=== PATIENT | female | born 1950 | race Caucasian/White ===

== ENCOUNTER → 2016-07-27 | Outpatient (CLI) | payer OTHER ==
[~2016-07-27] MED LIST: COLE1TAB5 PO; CYAN10005 PO; FENO145T26 PO; LISI-725 PO; OMEGCAP2 PO; PRIM50TA29 PO; THM100 PO; ZNTT/150 PO
--- NOTE | 2016-07-27 14:25 | MAMMOGRAPHY REPORT ---
BILATERAL DIGITAL SCREENING MAMMOGRAM WITH CAD: 07/27/2016 CLINICAL HISTORY: Routine screening. Patient has no complaints. TECHNIQUE: Current study was also evaluated with a Computer Aided Detection (CAD) system. Bilatera l CC and MLO views were obtained. COMPARISON: Comparison is made to exams dated: 07/15/2014 mammogram - [facility], mammogram, and 07/29/2010 mammogram - [facility]. BREAST COMPOSITION: The tissue of both breasts is heterogeneously dense, which may obscure small ma sses. FINDINGS: No suspicious masses, calcifications, or areas of architectural distortion are noted in e ither breast. There has been no significant interval change compared to prior exams. Scattered bilat eral benign-appearing calcifications are not significantly changed. Small benign-appearing masses i n the right upper outer quadrant are stable and likely represent benign intramammary lymph nodes. IMPRESSION: ACR BI-RADS CATEGORY 2: BENIGN There is no mammographic evidence of malignancy. A 1 year screening mammogram is recommended. The p atient will receive written notification of the results. Approximately 10% of breast cancers are not detected with mammography. A negative mammographic repor t should not delay biopsy if a clinically suggestive mass is present. Romelia Urias M.D. ah/:07/27/2016 13:28:41 Order Puller: Dustin LEONARDO(Marquis)([place]), [facility] letter sent: Normal 1/2 BI-RADS Code: ACR BI-RADS Category 2: Benign
== END | disposition home or self-care (01) ==
LOC: C.MAMM 11:04
PROVIDERS: ATTEND Family Medicine
DX: Z12.31 Encounter for screening mammogram for malignant neoplasm of breast (principal)

== ENCOUNTER → 2016-09-13 | Outpatient (CLI) | payer OTHER ==
[2016-09-13 09:55] LABS: BLOOD UREA NITROGEN 8 mg/dl (7-18); BUN/CREATININE RATIO 12.4 (10-20); CALCIUM 9.6 mg/dl (8.5-10.1); CARBON DIOXIDE 27 mmol/L (21-32); CHLORIDE 96 mmol/L (98-107); CREATININE 0.66 mg/dl (0.60-1.20); GLUCOSE 92 mg/dl (70-99); POTASSIUM 4.1 mmol/L (3.5-5.1); SODIUM 132 mmol/L (136-145)
== END | disposition home or self-care (01) ==
LOC: C.LAB 08:27
PROVIDERS: ATTEND Family Medicine
DX: E51.9 Thiamine deficiency, unspecified (principal); E87.1 Hypo-osmolality and hyponatremia

== ENCOUNTER → 2016-12-15 | Outpatient (CLI) | payer OTHER ==
[2016-12-15 11:14] LABS: ALT/SGPT 26 U/L (12-78); AST/SGOT 24 U/L (15-37); BLOOD UREA NITROGEN 6 mg/dl (7-18); BUN/CREATININE RATIO 9.8 (10-20); CALCIUM 9.9 mg/dl (8.5-10.1); CARBON DIOXIDE 27 mmol/L (21-32); CHLORIDE 100 mmol/L (98-107); CREATININE 0.65 mg/dl (0.60-1.20); GLUCOSE 88 mg/dl (70-99); SODIUM 135 mmol/L (136-145)
[2016-12-15 11:21] LABS: ALB/GLOB RATIO 1.1 (0.9-2); ALKALINE PHOSPHATASE 63 U/L (45-117); PREALBUMIN 20.4 mg/dl (20-40)
--- NOTE | 2016-12-22 07:42 | CODING QUERY MEDICAL NECESSITY ---
CQSUPPORTING DIAGNOSIS NEEDED A supporting diagnosis is required for the test/procedure performed on this patient in order for us to be reimbursed by the patient's insurance. Please provide a supporting diagnosis for the following test/procedure listed below next to the test name along with your signature. *If there is no additional diagnosis for this patient that would support the following test/procedure please document that below next to the test/procedure. Test(s)/Procedure(s) that require a supporting diagnosis: DOS 12/15/16 VITAMIN B12 YOU RETURNED QUERY WITH A SIGNATURE BUT NO DIAGNOSIS FOR THE VITAMIN B12 TEST PLEASE ADD DIAGNOSIS AND SIGNATURE THANK YOU FOR YOUR HELP Provider Signature: Date: Thank you Veronica Goldman Health Information Management Once completed, please kindly fax back to [phone] For questions please call [phone]
== END | disposition home or self-care (01) ==
LOC: C.LAB1850 08:59
PROVIDERS: ATTEND Family Medicine
DX: G20 Parkinson's disease (principal)

== ENCOUNTER → 2017-05-17 | Outpatient (CLI) | payer OTHER ==
[2017-05-17 19:06] LABS: URINE APPEARANCE TURBID (CLEAR); URINE EPITHELIAL CELL AUTO >30 /lpf (0-5); URINE NITRITE POS (NEG); UROBILINOGEN NEG (NEG)
[2017-05-17 19:41] LABS: URINE COLOR AMBER
[2017-05-17 19:42] LABS: MANUAL MICROSCOPIC REQUIRED? NO; REVIEW REQ? YES; URINE BILIRUBIN NEG (NEG)
== END | disposition home or self-care (01) ==
LOC: C.LABSPEC 17:35
PROVIDERS: ATTEND Nurse Practitioner Family
DX: R39.9 Unspecified symptoms and signs involving the genitourinary system (principal)

== ENCOUNTER → 2017-07-24 | Outpatient (CLI) | payer OTHER ==
[2017-07-24 10:34] LABS: BLOOD UREA NITROGEN 10 mg/dl (7-18); CALCIUM 9.7 mg/dl (8.5-10.1); CARBON DIOXIDE 27 mmol/L (21-32); CREATININE 0.61 mg/dl (0.60-1.20); GLUCOSE 87 mg/dl (70-99); POTASSIUM 3.7 mmol/L (3.5-5.1); SODIUM 131 mmol/L (136-145)
[2017-07-24 10:38] LABS: CHOLESTEROL 266 mg/dl (0-200); LDL CHOLESTEROL CALCULATED 160 mg/dl
== END ==
LOC: C.LAB1850 08:36
PROVIDERS: ATTEND Family Medicine
DX: I10 Essential (primary) hypertension (principal); E87.1 Hypo-osmolality and hyponatremia; E78.00 Pure hypercholesterolemia, unspecified

== ENCOUNTER → 2017-08-01 | Outpatient (CLI) | payer OTHER ==
--- NOTE | 2017-08-02 15:39 | MAMMOGRAPHY REPORT ---
BILATERAL DIGITAL SCREENING MAMMOGRAM TOMOSYNTHESIS WITH CAD: 08/01/2017 CLINICAL HISTORY: Routine screening. Patient has no complaints. TECHNIQUE: Breast tomosynthesis in addition to standard 2D mammography was performed. Current study was also evaluated with a Computer Aided Detection (CAD) system. COMPARISON: Comparison is made to exams dated: 07/27/2016 mammogram, 07/15/2014 mammogram - [facility], 10/31/2011 mammogram, 10/31/2011 ultrasound, 07/29/2010 mammogram, and 04/15/2009 mamm ogram - [facility]. BREAST COMPOSITION: The tissue of both breasts is heterogeneously dense, which may obscure small mas ses. FINDINGS: There are moderate vascular calcifications in the breasts and scattered benign rim calcific ations. Stable asymmetries in the superior right breast. No suspicious mass, architectural distorti on or cluster of new, suspicious microcalcifications is seen. IMPRESSION: ACR BI-RADS CATEGORY 1: NEGATIVE There is no mammographic evidence of malignancy. A 1 year screening mammogram is recommended. The pa tient will receive written notification of the results. Approximately 10% of breast cancers are not detected with mammography. A negative mammographic report should not delay biopsy if a clinically suggestive mass is present. Magi Shirley M.D. ay/:08/01/2017 19:28:14 Detacher: Haily LEONARDO(Marquis)([place]el[place]), [facility] letter sent: Normal 1/2 BI-RADS Code: ACR BI-RADS Category 1: Negative
== END | disposition home or self-care (01) ==
LOC: C.MAMM 09:54
PROVIDERS: ATTEND Family Medicine
DX: Z12.31 Encounter for screening mammogram for malignant neoplasm of breast (principal)

== ENCOUNTER 2017-10-11 19:58 | Inpatient (IN) | payer OTHER ==
[~2017-10-11] VITALS: Ht 172.7 cm; Wt 63.6 kg
[~2017-10-11 19:58] MED LIST changes: +RANI150T85 PO; -ZNTT/150 PO
[2017-10-11] MEDS ORDERED: SODIUM CHLORIDE 0.9% 1000ML 1,000 ML IV STA (20:11)
[2017-10-11] MEDS ORDERED: DIAZEPAM INJ 5 MG/ML 2 ML CARP IV STA (20:11)
[2017-10-11] MEDS ORDERED: MULTI-VITAMIN INFUSION INJ 10 ML, THIAMINE HCL INJ 100 MG, FoLIC ACID INJ 1 MG in SODIU... IV ONE (20:15)
--- NOTE | 2017-10-11 20:21 | EMERGENCY ROOM VISIT NOTE ---
History Report prepared by Michael: Lyric Macias Under the Supervision of: Dr. Matt King M.D. First contact with patient: 20:02 Stated Complaint: TREMORS History of Present Illness The patient is a 67 year old female who presents to the Emergency Room with complaints of worsening tremors beginning 3 days ago. The patient reports a history of tremors, but states that they have gotten worse since 3 days ago. The patient reports having heartburn earlier, but denies fevers, cough, and congestion. The patient denies alcohol use today, but states that she does use it regularly. The patient states that she usually has a glass of beer with lunch and dinner. Her reports that the patient was very drunk last night , and he states that he had to escort her to the bathroom because he was afraid that she would fall. Per , the patient was disoriented last night after her intoxication. Her states that she takes Primidone for her tremors. She denies a history of seizures related from alcohol withdrawal. Source of History: patient, family () Onset: 3 days ago Position: other (global) Quality: other (tremors) Timing: worsening Associated Symptoms: No fevers, No cough Note: additional symptom: heartburn Review of Systems See HPI for pertinent positives and negatives. A total of ten systems were reviewed and were otherwise negative. Past Medical & Surgical Medical Problems: (1) Hypertension (2) Recurrent episodes of unresponsiveness (3) Syncope (4) Tremor of both hands Family History No pertinent family history Social History Smoking Status: Former Smoker Alcohol Use: occasionally Drug Use: none Marital Status: Housing Status: lives with family Occupation Status: retired Current/Historical Medications Scheduled Fenofibrate (Tricor), 145 MG PO DAILY Lisinopril (Zestril), 20 MG PO QAM [place]-3 Fatty Acids (Fish Oil), 1 CAP PO DAILY Primidone (Mysoline), 25 MG PO BID Thiamine HCl (Vitamin B-1), 200 MG PO BID Scheduled PRN Ranitidine (Zantac), 150 MG PO DAILY PRN for prn Allergies Coded Allergies: No Known Allergies (Unverified , 10/11/17) Physical Exam Vital Signs Date Time Temp Pulse Resp B/P (MAP) Pulse Ox O2 Delivery O2 Flow Rate FiO2 10/11/17 23:00 80 16 133/71 100 10/11/17 22:37 80 15 134/71 99 Nasal Cannula 2.0 10/11/17 22:01 129/78 10/11/17 22:00 78 17 100 Nasal Cannula 2.0 10/11/17 21:31 139/77 10/11/17 21:30 77 16 94 Nasal Cannula 2.0 10/11/17 21:01 121/70 10/11/17 21:00 74 16 99 Nasal Cannula 2.0 10/11/17 20:54 79 10/11/17 20:47 100 Nasal Cannula 2.0 10/11/17 20:44 103 28 144/84 85 Room Air 10/11/17 20:01 37.7 114 18 159/89 96 Room Air Physical Exam GENERAL: Anxious, tremulous, awake, alert but confused (alert to self and place) , moderate distress HENT: Normocephalic, atraumatic. Dry, cracked mucous membranes, otherwise oropharynx unremarkable. EYES: Normal conjunctiva. Sclera non-icteric. NECK: Supple. No nuchal rigidity. FROM. No JVD. RESPIRATORY: Clear to auscultation. CARDIAC: ST. Extremities warm and well perfused. Pulses equal. ABDOMEN: Soft, non-distended. No tenderness to palpation. No rebound or guarding. No masses. RECTAL: Deferred. MUSCULOSKELETAL: Chest examination reveals no tenderness. The back is symmetrical on inspection without obvious abnormality. There is no CVA tenderness to palpation. No joint edema. LOWER EXTREMITIES: Calves are equal size bilaterally and non-tender. No edema. No discoloration. NEURO: Normal sensorium. Dysmetria with impaired finger to nose bilaterally. SKIN: Diaphoretic. No rash or jaundice noted. Medical Decision & Procedures ER Provider Diagnostic Interpretation: Radiology results as stated below per my review and radiologist interpretation: SINGLE VIEW CHEST CLINICAL HISTORY: Dyspnea. FINDINGS: An AP, portable, upright chest radiograph is compared to study dated 04/11/2016 and correlated with chest CT dated 07/31/2015. The examination is degraded by portable technique and patient rotation. The heart is top normal for projection. The mediastinal contour is within normal limits. Chronic interstitial thickening is similar to previous. No airspace consolidation or large pleural effusion is identified. No pneumothorax is seen. The skeletal structures are osteopenic. The bony thorax is grossly intact. IMPRESSION: No acute cardiopulmonary abnormality. Electronically signed by: Celio Huff M.D. 10/11/2017 9:44 PM Dictated Date/Time: 10/11/2017 9:[address] SCAN OF THE ABDOMEN AND PELVIS WITHOUT IV CONTRAST CLINICAL HISTORY: Elevated hepatic transaminases. Alcohol abuse. COMPARISON STUDY: Abdominal ultrasound dated 03/24/2014. TECHNIQUE: CT scan of the abdomen and pelvis is performed from the lung bases to the proximal femora. Images are reviewed in the axial, sagittal, and coronal planes. IV contrast was not administered for this examination as per the referring clinician. Note that the examination was performed in significantly suboptimal fashion without oral and IV contrast. The examination is also compromised by motion artifact. A dose lowering technique was utilized adhering to the principles of ALARA. CT DOSE: 272.18 mGy.cm FINDINGS: Lung bases: The heart is top normal in size and without pericardial effusion. The lung bases are clear noting dependent atelectasis. Liver: The unenhanced liver is normal in size. Heterogeneously diminished attenuation is consistent with steatosis. Mild nodularity of the surface contour suggests early change of cirrhosis. There is no intrahepatic biliary ductal dilatation. Gallbladder: Unremarkable. Spleen: Normal in size and attenuation. Pancreas: The unenhanced pancreas is moderately atrophic and grossly unremarkable. Adrenal glands: Unremarkable. Kidneys: The unenhanced kidneys are normal in size and without hydronephrosis. There are no renal calculi identified. There is no evidence of contour deforming renal mass lesion. Abdominal vasculature: The abdominal aorta is normal in course and caliber noting moderate to advanced atherosclerotic calcification. Bowel: There is rectosigmoid fecal retention. No bowel obstruction is seen. There are scattered colonic diverticula without CT evidence of acute diverticulitis. The appendix is well-visualized and normal. Peritoneum: There is no intraperitoneal free air or abdominal ascites. Foci of induration within the subcutaneous fat of the ventral abdominal wall are likely related to subcutaneous injections. Lymphadenopathy: None. Pelvic viscera: The bladder is normal as visualized. A small calcified uterine fibroids are suggested. Uterus and adnexa are otherwise normal as imaged. Skeletal structures: The skeletal structures are osteopenic. There is a severe compression deformity of L1. A mild superior endplate compression deformity is noted in L3. Moderate lumbar spondylosis is observed. No lytic or blastic lesions are seen. IMPRESSION: 1. Suboptimal examination without oral and IV contrast. 2. There is evidence of hepatic steatosis. 3. Mild nodularity of the hepatic surface contour suggests early change of cirrhosis. 4. Additional findings as above. Electronically signed by: Celio Huff M.D. 10/11/2017 10:37 PM Dictated Date/Time: 10/11/2017 10:31 PM Laboratory Results Test 10/11/17 20:28 Prothrombin Time 11.1 SECONDS (9.0-12.0) Prothromb Time International Ratio 1.1 (0.9-1.1) Activated Partial Thromboplast Time 25.9 SECONDS (21.0-31.0) Partial Thromboplastin Ratio 1.0 Phosphorus Level 1.9 mg/dl (2.5-4.9) Magnesium Level 1.7 mg/dl (1.8-2.4) Direct Bilirubin 0.3 mg/dl (0-0.2) Total Creatine Kinase 83 U/L (26-192) Lipase 396 U/L (73-393) Ethyl Alcohol mg/dL 8.4 mg/dl (0-3) Laboratory results reviewed by me Medications Administered Medications (Trade) Dose Ordered Sig/Emile Route Start Time Stop Time Status Last Admin Dose Admin Sodium Chloride 1,000 ml @ 999 mls/hr Q1H1M STAT IV 10/11/17 20:11 10/11/17 21:11 DC 10/11/17 20:43 999 MLS/HR Multivitamins 10 ml/Thiamine HCl 100 mg/Folic Acid 1 mg/Sodium Chloride 1,011.2 ml @ 500 mls/ hr Q2H2M ONCE IV 10/11/17 20:15 10/11/17 22:16 DC 10/11/17 21:16 500 MLS/HR Lorazepam (Ativan Inj) 1 mg ONE PRN IV 10/11/17 20:30 10/11/17 20:44 DC 10/11/17 20:40 1 MG Diazepam (Valium Inj) 5 mg STK-MED ONCE .ROUTE 10/11/17 20:33 10/11/17 20:34 DC 10/11/17 20:39 10 MG ECG Per My Interpretation Indication: other (tremors) Rate (beats per minute): 79 Rhythm: normal sinus Findings: no acute ischemic change, other (normal axis) ED Course 2008: The patient was evaluated in room B6. A complete history and physical exam was performed. 2126: I checked on the patient and updated her on her results. 2134: I discussed the patient with Dr. Mora - He will evaluate the patient for further treatment. Medical Decision I reviewed the patient's past medical history, medications, and the nursing notes as described above. The patient's presentation and history were concerning for alcohol withdrawal, delirium tremens, Wernicke-Korsakoff, essential tremor, dehydration, and electrolyte imbalance. The patient is a 59-year-old woman with a past medical history of alcohol abuse , and essential tremor who presents emergency department with worsening diffuse tremors in the setting of stopping her daily alcohol use today abruptly today per hpi. On arrival the patient is in moderate distress with diffuse body tremors, diaphoretic, with mild confusion concerning for delirium tremens/etoh withdrawal. Patient was given IV fluids, banana bag, and 10 mg of IV Valium with good effect with significant improvement in her tremors and heart rate improving from 120s-80s. Patient was placed on CIWA and prn Ativan ordered. Etoh 8. WBC 3.9 AST/ALT in the 80s is up from recent but has been higher in the past. Chest x-ray negative. Case was discussed with Dr. Mora, [facility] hospitalist, who will admit the patient for further management. Medication Reconcilliation Current Medication List: was personally reviewed by me Blood Pressure Screening Patient's blood pressure: Normal blood pressure Consults Time Called: 2109 Consulting Physician: Dr. Chandler Benjamin Returned Call: 2134 I discussed the patient with Dr. Mora - Jovany will evaluate the patient for further treatment. Impression Primary Impression: Delirium tremens Additional Impression: Alcohol withdrawal Critical Care I have personally spent greater than 35 minutes of critical care time in the direct management of this patient. This includes bedside care, interpretation of diagnostic studies, and testing, discussion with consultants, patient, and family members, and other required patient management activities. This 35 minutes is in excess of all separately billable procedures. Scribe Attestation The scribe's documentation has been prepared under my direction and personally reviewed by me in its entirety. I confirm that the note above accurately reflects all work, treatment, procedures, and medical decision making performed by me. Departure Information Dispostion Being Evaluated By Hospitalist Beto Ramírezia S., MD (PCP) Problem Qualifiers
[2017-10-11] MEDS ORDERED: LORAZEPAM 2 MG/ML 1 ML VIAL IV PRN (20:30)
[2017-10-11] MEDS ORDERED: DIAZEPAM 5 MG/ML INJ 10ML VIAL ONE (20:33)
[2017-10-11 20:44] LABS: BASO % 0.3 %; BASO ABS # 0.01 K/uL (0-0.2); EOS % 0.5 %; EOS ABS # 0.02 K/uL (0-0.5); HEMATOCRIT 37.2 % (37-47); HEMOGLOBIN 13.4 g/dL (12.0-16.0); IG# 0.01 K/uL (0.00-0.02); LYMPH % 28.9 %; LYMPH ABS # 1.15 K/uL (1.2-3.4); MEAN CELL VOLUME 98.9 fL (80-100); MEAN CORPUSCULAR HEMOGLOBIN 35.6 pg (25-34); MEAN PLATELET VOLUME 9.4 fL (7.4-10.4); MONO % 12.6 %; NEUT % 57.4 %; NEUT ABS # 2.29 K/uL (1.4-6.5); PLATELET COUNT 159 K/uL (130-400); RED CELL DISTRIBUTION WIDTH CV 12.7 % (11.5-14.5); RED CELL DISTRIBUTION WIDTH SD 46.1 fL (36.4-46.3); WHITE BLOOD COUNT 3.98 K/uL (4.8-10.8)
[2017-10-11 21:01] LABS: ALBUMIN 4.4 gm/dl (3.4-5.0); CREATININE 0.81 mg/dl (0.60-1.20); POTASSIUM 4.1 mmol/L (3.5-5.1)
[2017-10-11 21:05] LABS: PHOSPHORUS 1.9 mg/dl (2.5-4.9); TOTAL PROTEIN 7.5 gm/dl (6.4-8.2)
--- NOTE | 2017-10-11 21:45 | DIAGNOSTIC IMAGING REPORT ---
SINGLE VIEW CHEST CLINICAL HISTORY: Dyspnea. FINDINGS: An AP, portable, upright chest radiograph is compared to study dated 04/11/2016 and correlated with chest CT dated 07/31/2015. The examination is degraded by portable technique and patient rotation. The heart is top normal for projection. The mediastinal contour is within normal limits. Chronic interstitial thickening is similar to previous. No airspace consolidation or large pleural effusion is identified. No pneumothorax is seen. The skeletal structures are osteopenic. The bony thorax is grossly intact. IMPRESSION: No acute cardiopulmonary abnormality. Electronically signed by: Celio Huff M.D. 10/11/2017 9:44 PM Dictated Date/Time: 10/11/2017 9:42 PM
[2017-10-11 22:13] LABS: INR 1.1 (0.9-1.1); PTT PATIENT 25.9 SECONDS (21.0-31.0)
--- NOTE | 2017-10-11 22:39 | DIAGNOSTIC IMAGING REPORT ---
CT SCAN OF THE ABDOMEN AND PELVIS WITHOUT IV CONTRAST CLINICAL HISTORY: Elevated hepatic transaminases. Alcohol abuse. COMPARISON STUDY: Abdominal ultrasound dated 03/24/2014. TECHNIQUE: CT scan of the abdomen and pelvis is performed from the lung bases to the proximal femora. Images are reviewed in the axial, sagittal, and coronal planes. IV contrast was not administered for this examination as per the referring clinician. Note that the examination was performed in significantly suboptimal fashion without oral and IV contrast. The examination is also compromised by motion artifact. A dose lowering technique was utilized adhering to the principles of ALARA. CT DOSE: 272.18 mGy.cm FINDINGS: Lung bases: The heart is top normal in size and without pericardial effusion. The lung bases are clear noting dependent atelectasis. Liver: The unenhanced liver is normal in size. Heterogeneously diminished attenuation is consistent with steatosis. Mild nodularity of the surface contour suggests early change of cirrhosis. There is no intrahepatic biliary ductal dilatation. Gallbladder: Unremarkable. Spleen: Normal in size and attenuation. Pancreas: The unenhanced pancreas is moderately atrophic and grossly unremarkable. Adrenal glands: Unremarkable. Kidneys: The unenhanced kidneys are normal in size and without hydronephrosis. There are no renal calculi identified. There is no evidence of contour deforming renal mass lesion. Abdominal vasculature: The abdominal aorta is normal in course and caliber noting moderate to advanced atherosclerotic calcification. Bowel: There is rectosigmoid fecal retention. No bowel obstruction is seen. There are scattered colonic diverticula without CT evidence of acute diverticulitis. The appendix is well-visualized and normal. Peritoneum: There is no intraperitoneal free air or abdominal ascites. Foci of induration within the subcutaneous fat of the ventral abdominal wall are likely related to subcutaneous injections. Lymphadenopathy: None. Pelvic viscera: The bladder is normal as visualized. A small calcified uterine fibroids are suggested. Uterus and adnexa are otherwise normal as imaged. Skeletal structures: The skeletal structures are osteopenic. There is a severe compression deformity of L1. A mild superior endplate compression deformity is noted in L3. Moderate lumbar spondylosis is observed. No lytic or blastic lesions are seen. IMPRESSION: 1. Suboptimal examination without oral and IV contrast. 2. There is evidence of hepatic steatosis. 3. Mild nodularity of the hepatic surface contour suggests early change of cirrhosis. 4. Additional findings as above. Electronically signed by: Celio Huff M.D. 10/11/2017 10:37 PM Dictated Date/Time: 10/11/2017 10:31 PM
[2017-10-11] MEDS ORDERED: OPTIRAY 320 IV PRN (23:30)
[2017-10-12] VITALS (8 sets, daily range): BP systolic 137–160; BP diastolic 71–89; PULSE 70–84; TEMP 36.6–37; O2SAT 97–100; Ht 172.7 cm; Wt 63.6 kg
[2017-10-12] MEDS ORDERED: ACETAMINOPHEN 325 MG TAB PO PRN (00:15)
[2017-10-12] MEDS ORDERED: ALUMINUM/MAGNESIUM/SIMETH (MAALOX MAX) 30 ML UDC PO PRN (00:15)
[2017-10-12] MEDS ORDERED: GABAPENTIN 600 MG TAB PO SCH ×2 (00:15→02:00)
[2017-10-12] MEDS ORDERED: LORAZEPAM 2 MG/ML 1 ML VIAL IV PRN (00:15)
[2017-10-12] MEDS ORDERED: MAGNESIUM HYDROXIDE SUSP 30 ML UDC PO PRN (00:15)
[2017-10-12 02:05] LABS: HEP C IGG 13 YRS+OLDER_RFLX NEG (NEG)
[2017-10-12] MEDS: NSS + 20MEQ KCL 1000ML 1,000 ML IV SCH ×2 (05:16→14:35)
--- NOTE | 2017-10-12 05:37 | History and Physical ---
History & Physical Date & Time of Service: Oct 12, 2017 at 05:19. The patient was seen and examined on October 11, 2017. Chief Complaint: Alcohol Withdrawal, Tremor Of Both Hands Primary Care Physician: Stephanie Chandra MD History of Present Illness Source: patient, spouse The patient is a 67-year-old female presents emergency department with worsening tremors that began 2-3 days prior to arrival. She follows with neurology as treated with primidone to control seizures. She has a long history of alcohol abuse, but has been reporting that she needed to guidance to the bathroom last night due to her alcohol intoxication. The patient has received diazepam 10 mg then 5 mg IV along with lorazepam 1 mg IV by ED staff, and is somewhat lethargic during examination, with her providing most of her HPI. Past Medical/Surgical History Medical Problems: (1) Alcohol intoxication (2) Fracture, metacarpal (3) Hypertension (4) Hyponatremia (5) Hypotension (6) Orthostatic hypotension (7) Recurrent episodes of unresponsiveness (8) Syncope (9) Tremor of both hands Family History No pertinent family history Social History Smoking Status: Never Smoker Smokeless Tobacco Use: No Alcohol Use: heavy Drug Use: none Marital Status: Housing status: lives with family Occupational Status: retired Immunizations History of Influenza Vaccine: Unknown History of Tetanus Vaccine?: Unknown History of Pneumococcal: Unknown History of Hepatitis B Vaccine: Unknown Allergies Coded Allergies: No Known Allergies (Unverified , 10/11/17) Home Medications Scheduled Fenofibrate (Tricor), 145 MG PO DAILY Lisinopril (Zestril), 20 MG PO QAM [place]-3 Fatty Acids (Fish Oil), 1 CAP PO DAILY Primidone (Mysoline), 25 MG PO BID Thiamine HCl (Vitamin B-1), 200 MG PO BID Scheduled PRN Ranitidine (Zantac), 150 MG PO DAILY PRN for prn Review of Systems The patient denies chest pain, palpitations, shortness of breath, dyspnea on exertion, cough, lower extremity swelling, sore throat, fevers, chills, sweats, weight change, fatigue, nausea, vomiting, diarrhea, constipation, abdominal pain, pelvic pain, blood in urine or stool, dysuria, urinary frequency or urgency, lightheadedness , dizziness, headache, loss of consciousness, rash, abnormal bruising or bleeding, imbalance, focal or generalized weakness, numbness or tingling in legs, generalized arthralgias or myalgias, back or neck pain, or night sweats. The review of systems is otherwise negative other than for that already noted above, and at least 10 systems have been reviewed. Physical Exam Vital Signs Date Time Temp Pulse Resp B/P (MAP) Pulse Ox O2 Delivery O2 Flow Rate FiO2 10/12/17 04:30 37.0 81 20 151/71 99 Room Air 10/12/17 01:00 70 14 144/92 98 10/12/17 00:30 76 16 125/67 96 10/12/17 00:00 70 14 128/72 96 10/11/17 23:30 80 20 122/65 97 10/11/17 23:00 80 16 133/71 100 10/11/17 22:37 80 15 134/71 99 Nasal Cannula 2.0 10/11/17 22:01 129/78 10/11/17 22:00 78 17 100 Nasal Cannula 2.0 10/11/17 21:31 139/77 10/11/17 21:30 77 16 94 Nasal Cannula 2.0 10/11/17 21:01 121/70 10/11/17 21:00 74 16 99 Nasal Cannula 2.0 10/11/17 20:54 79 10/11/17 20:47 100 Nasal Cannula 2.0 10/11/17 20:44 103 28 144/84 85 Room Air 10/11/17 20:01 37.7 114 18 159/89 96 Room Air The patient is awake, alert and oriented 3, well developed and well nourished, normocephalic and atraumatic, lying in bed and in no acute distress. HEENT--PERRL, EOMI, mucous membranes and oropharynx dry. Neck--supple. No JVD. No bruits. Thyroid normal, trachea midline, no adenopathy. Heart--normal S1 and S2. No murmurs, rubs or gallops. Lungs--clear bilaterally, no respiratory distress, no accessory muscle use. Abdomen--normal bowel sounds and soft. Nontender. Nondistended, no hernias or masses, no organomegaly. Extremities--no cyanosis or clubbing. No edema. There are good distal pulses b/ l. Dermatologic--normal skin turgor, normal color, no abnormal lymph nodes, no rash. Neurologic--cranial nerves II through XII grossly intact. Rheumatologic--normal range of motion. Psychiatric--lethargic due to benzodiazepine administration in the ED Diagnostics Laboratory Results Results Past 24 Hours Test 10/11/17 20:28 10/12/17 00:37 10/12/17 02:02 Range/Units White Blood Count 3.98 4.8-10.8 K/uL Red Blood Count 3.76 4.2-5.4 M/uL Hemoglobin 13.4 12.0-16.0 g/dL Hematocrit 37.2 37-47 % Mean Corpuscular Volume 98.9 80-100 fL Mean Corpuscular Hemoglobin 35.6 25-34 pg Mean Corpuscular Hemoglobin Concent 36.0 32-36 g/dl Platelet Count 159 130-400 K/uL Mean Platelet Volume 9.4 7.4-10.4 fL Neutrophils (%) (Auto) 57.4 % Lymphocytes (%) (Auto) 28.9 % Monocytes (%) (Auto) 12.6 % Eosinophils (%) (Auto) 0.5 % Basophils (%) (Auto) 0.3 % Neutrophils # (Auto) 2.29 1.4-6.5 K/uL Lymphocytes # (Auto) 1.15 1.2-3.4 K/uL Monocytes # (Auto) 0.50 0.11-0.59 K/uL Eosinophils # (Auto) 0.02 0-0.5 K/uL Basophils # (Auto) 0.01 0-0.2 K/uL RDW Standard Deviation 46.1 36.4-46.3 fL RDW Coefficient of Variation 12.7 11.5-14.5 % Immature Granulocyte % (Auto) 0.3 % Immature Granulocyte # (Auto) 0.01 0.00-0.02 K/uL Prothrombin Time 11.1 9.0-12.0 SECONDS Prothromb Time International Ratio 1.1 0.9-1.1 Activated Partial Thromboplast Time 25.9 21.0-31.0 SECONDS Partial Thromboplastin Ratio 1.0 Sodium Level 132 136-145 mmol/L Potassium Level 4.1 3.5-5.1 mmol/L Chloride Level 98 98-107 mmol/L Carbon Dioxide Level 22 21-32 mmol/L Anion Gap 12.0 3-11 mmol/L Blood Urea Nitrogen 13 7-18 mg/dl Creatinine 0.81 0.60-1.20 mg/dl Est Creatinine Clear Calc Drug Dose 67.0 ml/min Estimated GFR () 86.5 Estimated GFR (Non- 74.6 BUN/Creatinine Ratio 15.7 10-20 Random Glucose 85 70-99 mg/dl Calcium Level 10.0 8.5-10.1 mg/dl Phosphorus Level 1.9 2.5-4.9 mg/dl Magnesium Level 1.7 1.8-2.4 mg/dl Total Bilirubin 0.9 0.2-1 mg/dl Direct Bilirubin 0.3 0-0.2 mg/dl Aspartate Amino Transf (AST/SGOT) 81 15-37 U/L Alanine Aminotransferase (ALT/SGPT) 88 12-78 U/L Alkaline Phosphatase 66 45-117 U/L Total Creatine Kinase 83 26-192 U/L Total Protein 7.5 6.4-8.2 gm/dl Albumin 4.4 3.4-5.0 gm/dl Lipase 396 73-393 U/L Ethyl Alcohol mg/dL 8.4 0-3 mg/dl Hepatitis B Surface Antigen NEG NEG Hepatitis C Antibody NEG NEG Urine Color DK YELLOW Urine Appearance CLEAR CLEAR Urine pH 7.5 4.5-7.5 Urine Specific [place] > 1.045 1.000-1.030 Urine Protein NEG NEG Urine Glucose (UA) NEG NEG Urine Ketones TRACE NEG Urine Occult Blood NEG NEG Urine Nitrite POS NEG Urine Bilirubin NEG NEG Urine Urobilinogen NEG NEG Urine Leukocyte Esterase SMALL NEG Urine WBC (Auto) 10-30 0-5 /hpf Urine RBC (Auto) 0-4 0-4 /hpf Urine Hyaline Casts (Auto) 1-5 0-5 /lpf Urine Epithelial Cells (Auto) >30 0-5 /lpf Urine Bacteria (Auto) 2+ NEG Microbiology Results 10/12/17 Urine Culture, Received Pending Diagnostic Radiology Patient Name: SHEA ESCOBEDO Unit Number: [id number] Dictated: 10/11/172141 Transcribed: 10/11/172141 EV Printed Date/Time: [~ rep prt dt]/[~ rep prt tm] [~ rep ct labl] - [~ rep ct ivnm] [facility] [place] [place] [address] Dictated: 10/11/172141 Transcribed: 10/11/172141 EV Printed Date/Time: [~ rep prt dt]/[~ rep prt tm] [~ rep ct labl] - [~ rep ct ivnm] SINGLE VIEW CHEST CLINICAL HISTORY: Dyspnea. FINDINGS: An AP, portable, upright chest radiograph is compared to study dated 04/11/2016 and correlated with chest CT dated 07/31/2015. The examination is degraded by portable technique and patient rotation. The heart is top normal for projection. The mediastinal contour is within normal limits. Chronic interstitial thickening is similar to previous. No airspace consolidation or large pleural effusion is identified. No pneumothorax is seen. The skeletal structures are osteopenic. The bony thorax is grossly intact. IMPRESSION: No acute cardiopulmonary abnormality. Electronically signed by: Celio Huff M.D. 10/11/2017 9:44 PM Dictated Date/Time: 10/11/2017 9:42 PM The status of this report is Signed. Draft = Not yet reviewed or approved by Radiologist. Signed = Reviewed and approved by Radiologist. <AttendingPhy></AttendingPhy> <FamilyPhy>Kristal Garland D.O.</FamilyPhy> < PrimaryPhy>Stephanie Chandra MD</PrimaryPhy> <UnitNumber>[id number]</UnitNumber > <VisitNumber>[id number]</VisitNumber> <PatientName>SHEA ESCOBEDO</ PatientName> <DateOfBirth>1950</DateOfBirth> <Location>[facility]</Location> < ServiceDate>10/11/17</ServiceDate> <MNE>ESINDI</MNE> <OrderingPhy>Matt King M.D.</OrderingPhy> <OrderingPhyMNE>f rep ord dr youssef</OrderingPhyMNE> <DictatingPhyMNE>f rep dict dr youssef</DictatingPhyMNE> <CCListMNE>f rep ct mne</ CCListMNE> <AdmittingPhyMNE>f pt admit dr youssef</AdmittingPhyMNE> <AttendingPhyMNE >f pt attend dr youssef</AttendingPhyMNE> <ConsultingPhyMNE>f pt consult dr youssef</ConsultingPhyMNE> <FamilyPhyMNE>f pt fam dr youssef</FamilyPhyMNE> <OtherPhyMNE>f pt other dr youssef</OtherPhyMNE> < PrimaryPhyMNE>f pt prim care dr youssef</PrimaryPhyMNE> <ReferringPhyMNE>f pt referring dr youssef</ReferringPhyMNE> Patient Name: SHEA ESCOBEDO Unit Number: [id number] Dictated: 10/11/172230 Transcribed: 10/11/172230 EV Printed Date/Time: [~ rep prt dt]/[~ rep prt tm] [~ rep ct labl] - [~ rep ct ivnm] [facility] [place] [address] Dictated: 10/11/172230 Transcribed: 10/11/172230 EV Printed Date/Time: [~ rep prt dt]/[~ rep prt tm] [~ rep ct labl] - [~ rep ct ivnm] CT SCAN OF THE ABDOMEN AND PELVIS WITHOUT IV CONTRAST CLINICAL HISTORY: Elevated hepatic transaminases. Alcohol abuse. COMPARISON STUDY: Abdominal ultrasound dated 03/24/2014. TECHNIQUE: CT scan of the abdomen and pelvis is performed from the lung bases to the proximal femora. Images are reviewed in the axial, sagittal, and coronal planes. IV contrast was not administered for this examination as per the referring clinician. Note that the examination was performed in significantly suboptimal fashion without oral and IV contrast. The examination is also compromised by motion artifact. A dose lowering technique was utilized adhering to the principles of ALARA. CT DOSE: 272.18 mGy.cm FINDINGS: Lung bases: The heart is top normal in size and without pericardial effusion. The lung bases are clear noting dependent atelectasis. Liver: The unenhanced liver is normal in size. Heterogeneously diminished attenuation is consistent with steatosis. Mild nodularity of the surface contour suggests early change of cirrhosis. There is no intrahepatic biliary ductal dilatation. Gallbladder: Unremarkable. Spleen: Normal in size and attenuation. Pancreas: The unenhanced pancreas is moderately atrophic and grossly unremarkable. Adrenal glands: Unremarkable. Kidneys: The unenhanced kidneys are normal in size and without hydronephrosis. There are no renal calculi identified. There is no evidence of contour deforming renal mass lesion. Abdominal vasculature: The abdominal aorta is normal in course and caliber noting moderate to advanced atherosclerotic calcification. Bowel: There is rectosigmoid fecal retention. No bowel obstruction is seen. There are scattered colonic diverticula without CT evidence of acute diverticulitis. The appendix is well-visualized and normal. Peritoneum: There is no intraperitoneal free air or abdominal ascites. Foci of induration within the subcutaneous fat of the ventral abdominal wall are likely related to subcutaneous injections. Lymphadenopathy: None. Pelvic viscera: The bladder is normal as visualized. A small calcified uterine fibroids are suggested. Uterus and adnexa are otherwise normal as imaged. Skeletal structures: The skeletal structures are osteopenic. There is a severe compression deformity of L1. A mild superior endplate compression deformity is noted in L3. Moderate lumbar spondylosis is observed. No lytic or blastic lesions are seen. IMPRESSION: 1. Suboptimal examination without oral and IV contrast. 2. There is evidence of hepatic steatosis. 3. Mild nodularity of the hepatic surface contour suggests early change of cirrhosis. 4. Additional findings as above. Electronically signed by: Celio Huff M.D. 10/11/2017 10:37 PM Dictated Date/Time: 10/11/2017 10:31 PM The status of this report is Signed. Draft = Not yet reviewed or approved by Radiologist. Signed = Reviewed and approved by Radiologist. <AttendingPhy></AttendingPhy> <FamilyPhy>Kristal Garland D.O.</FamilyPhy> < PrimaryPhy>Stephanie Chandra MD</PrimaryPhy> <UnitNumber>[id number]</UnitNumber > <VisitNumber>[id number]</VisitNumber> <PatientName>SHEA ESCOBEDO</ PatientName> <DateOfBirth>1950</DateOfBirth> <Location>[facility]</Location> < ServiceDate>10/11/17</ServiceDate> <MNE>ESINDI</MNE> <OrderingPhy>Tomas Mora M.D.</OrderingPhy> <OrderingPhyMNE>f rep ord dr jacobe</OrderingPhyMNE> < DictatingPhyMNE>f rep dict dr youssef</DictatingPhyMNE> <CCListMNE>f rep ct mne</ CCListMNE> <AdmittingPhyMNE>f pt admit dr youssef</AdmittingPhyMNE> <AttendingPhyMNE >f pt attend dr youssef</AttendingPhyMNE> <ConsultingPhyMNE>f pt consult dr youssef</ConsultingPhyMNE> <FamilyPhyMNE>f pt fam dr youssef</FamilyPhyMNE> <OtherPhyMNE>f pt other dr youssef</OtherPhyMNE> < PrimaryPhyMNE>f pt prim care dr youssef</PrimaryPhyMNE> <ReferringPhyMNE>f pt referring dr youssef</ReferringPhyMNE> EKG EKG sinus rhythm at 79 bpm, there are no acute ST-T changes, question interval of atrial flutter with variable block, ask cardiology to review. Impression Assessment and Plan Alcohol withdrawal/worsening tremor-- Admit to telemetry unit Neurochecks Alcohol withdrawal program. Continue primidone 25 mg p.o. twice daily. Normal saline with 20 milliequivalents KCl at 100 mils per hour. Vitamin B complex daily. Continue thiamine 200 mg p.o. twice daily as outpatient. Add folic acid 1 mg daily. Question element of Wernicke-Korsakoff's syndrome, however, unable to fully address due to the sedation from benzodiazepines given in ED. Consult neurology. Consult multicultural services librarian Hypertension- Continue lisinopril 20 mg daily. Hypertriglyceridemia-- Continue fenofibrate 145 mg daily. Fatty liver/early cirrhosis-- Noted on CT. Discussed with patient importance of cessation of alcohol use. L1 compression deformity/L3 endplate deformity-- Patient appears asymptomatic at this time. Advanced Directives Existing Living Will: Yes Existing Power of Pheresis Specialist: Yes Resuscitation Status VTE Prophylaxis Will order VTE Prophylaxis: Yes
[2017-10-12 07:44] LABS: BASO % 0.3 %; BASO ABS # 0.01 K/uL (0-0.2); EOS % 0.3 %; EOS ABS # 0.01 K/uL (0-0.5); HEMATOCRIT 32.4 % (37-47); HEMOGLOBIN 11.4 g/dL (12.0-16.0); IG# 0.01 K/uL (0.00-0.02); LYMPH % 25.8 %; LYMPH ABS # 0.77 K/uL (1.2-3.4); MEAN CELL VOLUME 100.6 fL (80-100); MEAN CORPUSCULAR HEMOGLOBIN 35.4 pg (25-34); MEAN CORPUSCULAR HGB CONC 35.2 g/dl (32-36); MEAN PLATELET VOLUME 9.2 fL (7.4-10.4); MONO % 14.4 %; MONO ABS # 0.43 K/uL (0.11-0.59); NEUT % 58.9 %; NEUT ABS # 1.76 K/uL (1.4-6.5); PLATELET COUNT 114 K/uL (130-400); WHITE BLOOD COUNT 2.99 K/uL (4.8-10.8)
[2017-10-12] MEDS: LISINOPRIL 20 MG TAB PO SCH (08:02)
[2017-10-12] MEDS: RANITIDINE HCL 150 MG TAB PO SCH ×2 (08:02→20:26)
[2017-10-12] MEDS: FENOFIBRATE 145 MG TAB PO SCH (08:02)
[2017-10-12] MEDS: THIAMINE HCL 100 MG TAB PO SCH ×2 (08:02→20:26)
[2017-10-12] MEDS: PRIMIDONE 50 MG TAB PO SCH ×2 (08:03→20:26)
[2017-10-12 08:12] LABS: ALBUMIN 3.3 gm/dl (3.4-5.0); CALCIUM 8.9 mg/dl (8.5-10.1); CREATININE 0.52 mg/dl (0.60-1.20); POTASSIUM 4.1 mmol/L (3.5-5.1)
[2017-10-12 08:17] LABS: TOTAL PROTEIN 5.8 gm/dl (6.4-8.2)
--- NOTE | 2017-10-12 08:38 | DIAGNOSTIC IMAGING REPORT ---
ABDOMEN AND PELVIS CT WITH IV CONTRAST CT DOSE: 261.91 mGy.cm HISTORY: liver cirrhosis, fatty liver on CT without TECHNIQUE: Multiaxial CT images of the abdomen and pelvis were performed following the use of intravenous contrast. A dose lowering technique was utilized adhering to the principles of ALARA. COMPARISON STUDY: Abdomen and pelvis CT 10/11/2017. FINDINGS: Mild dependent changes seen at the lung bases. No pneumoperitoneum. No pneumatosis. No suspicious lytic or blastic osseous lesions. T10, L1 and L3 compression deformities. These are likely old. No hepatic or splenic masses. The adrenal glands, pancreas, and gallbladder are unremarkable. Normal right kidney. No hydronephrosis. 5 mm hypodense lesion within the left kidney which is too small to characterize. No retroperitoneal lymphadenopathy. Moderate calcified plaque within the normal caliber abdominal aorta. The bladder and bilateral ovaries are unremarkable. Small calcification within the uterus which favors a fibroid. Colonic diverticulosis. No bowel wall thickening or obstruction. Normal appendix. Subcutaneous fat stranding within the anterior abdominal wall. This is likely due to prior medication injection. IMPRESSION: 1. No significant change compared to the prior study. 2. No hepatic masses identified on this single phase study. 3. No bowel wall thickening or obstruction. 4. Normal appendix. 5. Thoracic and lumbar spine compression deformities. These are likely old. Electronically signed by: Leopoldo Patton M.D. 10/12/2017 7:13 AM Dictated Date/Time: 10/12/2017 7:08 AM
[2017-10-12] MEDS: ENOXAPARIN 40 MG/0.4 ML SYR SC SCH (09:00)
[2017-10-12] MEDS: MULTIVITAMIN TAB PO SCH (10:09)
[2017-10-12] MEDS: GABAPENTIN 100MG Q6H DOSE PO SCH ×2 (11:13→15:47)
--- NOTE | 2017-10-12 11:24 | Family Medicine Progress Note ---
Progress Note Date of Service Oct 12, 2017. Subjective Pt evaluation today including: conversation w/ patient, physical exam, chart review, lab review, review of studies, review of inpatient medication list Pain: denies PO Intake: adequate Voiding: no voiding problems No acute events. reports resting tremor worse then baseline. She denies chest pain palpitation, n/v diarrhea Constitutional: No fever, No chills Eyes: No worsening of vision Respiratory: No cough, No shortness of breath Cardiovascular: No chest pain, No edema, No palpitations Abdomen: No pain, No nausea, No vomiting, No diarrhea Female : No dysuria, No urinary frequency Neurologic: + problem reported (tremor) Skin: No rash Medications Current Inpatient Medications Medications (Trade) Dose Ordered Sig/Emile Route Start Time Stop Time Status Last Admin Dose Admin Ioversol (Optiray 320) 100 ml UD PRN IV 10/11/17 23:30 10/15/17 23:29 Enoxaparin Sodium (Lovenox Inj) 40 mg Q24H SC 10/12/17 09:00 11/11/17 08:59 Potassium Chloride/Sodium Chloride 1,000 ml @ 100 mls/hr Q10H IV 10/12/17 02:00 11/11/17 01:59 10/12/17 05:16 100 MLS/HR Acetaminophen (Tylenol Tab) 650 mg Q4H PRN PO 10/12/17 00:15 11/11/17 00:14 Al Hydrox/Mg Hydrox/Simethicone (Maalox Max Susp) 15 ml Q4H PRN PO 10/12/17 00:15 11/11/17 00:14 Magnesium Hydroxide (Milk Of Magnesia Susp) 30 ml Q12H PRN PO 10/12/17 00:15 11/11/17 00:14 Fenofibrate (Tricor Tab) 145 mg DAILY PO 10/12/17 09:00 11/11/17 08:59 10/12/17 08:02 145 MG Lisinopril (Zestril Tab) 20 mg QAM PO 10/12/17 09:00 11/11/17 08:59 10/12/17 08:02 20 MG Primidone (Mysoline Tab) 25 mg BID PO 10/12/17 09:00 11/11/17 08:59 10/12/17 08:03 25 MG Ranitidine HCl (zANTac TAB) 150 mg BID PO 10/12/17 09:00 11/11/17 08:59 10/12/17 08:02 150 MG Thiamine HCl (Vitamin B-1 Tab) 200 mg BID PO 10/12/17 09:00 11/11/17 08:59 10/12/17 08:02 200 MG Lorazepam (Ativan Inj) PRN Dosing -Active Protocol Q1H PRN IV 10/12/17 00:15 11/11/17 00:14 Gabapentin (Neurontin Cap) 100 mg Q6H PO 10/12/17 10:00 10/12/17 16:01 10/12/17 11:13 100 MG Gabapentin (Neurontin Tab) 600 mg Q24H PO 10/13/17 16:00 10/13/17 16:01 Gabapentin (Neurontin Cap) 400 mg Q24H PO 10/14/17 16:00 10/14/17 16:01 Gabapentin (Neurontin Cap) 100 mg Q24H PO 10/15/17 16:00 10/15/17 16:01 Folic Acid (Folvite Tab) 1 mg QAM PO 10/12/17 09:00 11/11/17 08:59 10/12/17 10:08 1 MG Multivitamins (Multivitamin Tab) 1 tab QAM PO 10/12/17 09:00 11/11/17 08:59 10/12/17 10:09 1 TAB Objective Vital Signs Date Time Temp Pulse Resp B/P (MAP) Pulse Ox O2 Delivery O2 Flow Rate FiO2 10/12/17 08:00 100 Room Air 10/12/17 08:00 Room Air 10/12/17 07:14 36.6 70 18 145/71 (95) 100 Room Air 10/12/17 04:30 37.0 81 20 151/71 99 Room Air 10/12/17 01:00 70 14 144/92 98 10/12/17 00:30 76 16 125/67 96 10/12/17 00:00 70 14 128/72 96 10/11/17 23:30 80 20 122/65 97 10/11/17 23:00 80 16 133/71 100 10/11/17 22:37 80 15 134/71 99 Nasal Cannula 2.0 10/11/17 22:01 129/78 10/11/17 22:00 78 17 100 Nasal Cannula 2.0 10/11/17 21:31 139/77 10/11/17 21:30 77 16 94 Nasal Cannula 2.0 10/11/17 21:01 121/70 10/11/17 21:00 74 16 99 Nasal Cannula 2.0 10/11/17 20:54 79 10/11/17 20:47 100 Nasal Cannula 2.0 10/11/17 20:44 103 28 144/84 85 Room Air 10/11/17 20:01 37.7 114 18 159/89 96 Room Air Physical Exam General Appearance: WD/WN, + mild distress Eyes: normal inspection, PERRL, EOMI Neck: supple, no adenopathy, trachea midline Respiratory/Chest: lungs clear, normal breath sounds, no respiratory distress, no accessory muscle use Cardiovascular: regular rate, rhythm, no edema Abdomen: normal bowel sounds, non tender, soft Extremities: no pedal edema, no calf tenderness 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, no motor/sensory deficits, alert, normal mood/affect, + pertinent finding (resting tremor) Skin: normal color, warm/dry Laboratory Results Results Past 24 Hours Test 10/11/17 20:28 10/12/17 00:37 10/12/17 02:02 10/12/17 07:32 Range/Units White Blood Count 3.98 2.99 4.8-10.8 K/uL Red Blood Count 3.76 3.22 4.2-5.4 M/uL Hemoglobin 13.4 11.4 12.0-16.0 g/dL Hematocrit 37.2 32.4 37-47 % Mean Corpuscular Volume 98.9 100.6 80-100 fL Mean Corpuscular Hemoglobin 35.6 35.4 25-34 pg Mean Corpuscular Hemoglobin Concent 36.0 35.2 32-36 g/dl Platelet Count 159 114 130-400 K/uL Mean Platelet Volume 9.4 9.2 7.4-10.4 fL Neutrophils (%) (Auto) 57.4 58.9 % Lymphocytes (%) (Auto) 28.9 25.8 % Monocytes (%) (Auto) 12.6 14.4 % Eosinophils (%) (Auto) 0.5 0.3 % Basophils (%) (Auto) 0.3 0.3 % Neutrophils # (Auto) 2.29 1.76 1.4-6.5 K/uL Lymphocytes # (Auto) 1.15 0.77 1.2-3.4 K/uL Monocytes # (Auto) 0.50 0.43 0.11-0.59 K/uL Eosinophils # (Auto) 0.02 0.01 0-0.5 K/uL Basophils # (Auto) 0.01 0.01 0-0.2 K/uL RDW Standard Deviation 46.1 48.0 36.4-46.3 fL RDW Coefficient of Variation 12.7 13.0 11.5-14.5 % Immature Granulocyte % (Auto) 0.3 0.3 % Immature Granulocyte # (Auto) 0.01 0.01 0.00-0.02 K/uL Prothrombin Time 11.1 9.0-12.0 SECONDS Prothromb Time International Ratio 1.1 0.9-1.1 Activated Partial Thromboplast Time 25.9 21.0-31.0 SECONDS Partial Thromboplastin Ratio 1.0 Sodium Level 132 134 136-145 mmol/L Potassium Level 4.1 4.1 3.5-5.1 mmol/L Chloride Level 98 102 98-107 mmol/L Carbon Dioxide Level 22 24 21-32 mmol/L Anion Gap 12.0 8.0 3-11 mmol/L Blood Urea Nitrogen 13 13 7-18 mg/dl Creatinine 0.81 0.52 0.60-1.20 mg/dl Est Creatinine Clear Calc Drug Dose 67.0 104.0 ml/min Estimated GFR () 86.5 113.8 Estimated GFR (Non- 74.6 98.2 BUN/Creatinine Ratio 15.7 25.6 10-20 Random Glucose 85 73 70-99 mg/dl Calcium Level 10.0 8.9 8.5-10.1 mg/dl Phosphorus Level 1.9 2.5-4.9 mg/dl Magnesium Level 1.7 1.8-2.4 mg/dl Total Bilirubin 0.9 1.0 0.2-1 mg/dl Direct Bilirubin 0.3 0-0.2 mg/dl Aspartate Amino Transf (AST/SGOT) 81 56 15-37 U/L Alanine Aminotransferase (ALT/SGPT) 88 61 12-78 U/L Alkaline Phosphatase 66 47 45-117 U/L Total Creatine Kinase 83 26-192 U/L Total Protein 7.5 5.8 6.4-8.2 gm/dl Albumin 4.4 3.3 3.4-5.0 gm/dl Lipase 396 73-393 U/L Ethyl Alcohol mg/dL 8.4 0-3 mg/dl Hepatitis B Surface Antigen NEG NEG Hepatitis C Antibody NEG NEG Urine Color DK YELLOW Urine Appearance CLEAR CLEAR Urine pH 7.5 4.5-7.5 Urine Specific Thermal > 1.045 1.000-1.030 Urine Protein NEG NEG Urine Glucose (UA) NEG NEG Urine Ketones TRACE NEG Urine Occult Blood NEG NEG Urine Nitrite POS NEG Urine Bilirubin NEG NEG Urine Urobilinogen NEG NEG Urine Leukocyte Esterase SMALL NEG Urine WBC (Auto) 10-30 0-5 /hpf Urine RBC (Auto) 0-4 0-4 /hpf Urine Hyaline Casts (Auto) 1-5 0-5 /lpf Urine Epithelial Cells (Auto) >30 0-5 /lpf Urine Bacteria (Auto) 2+ NEG Globulin 2.5 2.5-4.0 gm/dl Albumin/Globulin Ratio 1.3 0.9-2 Microbiology Results 10/12/17 Urine Culture, Received Pending Assessment and Plan 67 yo F with history of Benign Essential Tremor , chronic alcohol abuse presenting with worsening tremor and ambulatory difficulty Worsening Resting Tremor (chronic), Ambulatory disfunction - likely exacerbated by chronic alcohol abuse , withdrawal - c/w Alcohol withdrawal protocol -Thiamine, Folate supplementation - Neurology consulted d/c'd - outpatient follow up needed with Neurology ( Dr. Garland) Malnutrition - likely secondary to alcohol consumption - Nutrition support Hypertension -BP controlled -Continue lisinopril 20 mg daily. Hypertriglyceridemia -Continue fenofibrate 145 mg daily. Fatty liver/early cirrhosis -Noted on CT. -counseled for alcohol L1 compression deformity/L3 endplate deformity -asx DVT PPX: - Lovenox Resident Physician Supervision Note: I interviewed and examined the patient. Discussed with Dr. Alejandro and agree with findings and plan as documented in the note. Any exceptions or clarifications are listed here: None Documented By: Dav Jimenez >30mins face to face attending time in the room with pt and family feelign weak, tremor worse. gait is wide and shuffling - notes that she 's usually worse at the end of the day. drinks 12oz bud light [place] at lunch, then "a glass of wine" at dinner "we have small glasses, and it's packed with ice" -- then notes that actually it's usually several glasses hard to quantify how much because he drinks more than her - but between the two of them they'll usually go through a 1.5L bottle of wine a day does not feel she's safe at home, worries about fall risk vitals noted nad breathing unlabored coarse resting tremor wide based shuffling gait ambulatory dysfunction/deconditioning - appearing to have muscle tightness/ weakness in back/pelvis, may also have a degree of DJD contributing - but overall picture is that of a woman who is high risk for falls and would benefit greatly from rehab at this time. alcohol abuse absolutely appears contributing both due to the gait disturbance directly (husbands notes several times her gait is worse later in the day - at the same time she would be intoxicated) and due to alcohol induced malnutrition; possibly elements of EtOH induced neuropathy - will need to follow clinically to discern that tremor - essential tremor. almost certainly made worse by EtOH abuse EtOH abuse - extensive and phan discussion on consequences of EtOH abuse and how the above appear to be directly contributing to a clear wrosening in her status/health/safety. she isn't sure that she's ready to quit but after discussion of risks of EtOH withdrawal she is confident enough that it's time to quit to take the risk that she may go through withdrawal. fortunately she was sober x3 days in the fall without any significant withdrawal. outlined s/s to pt and (and son) in detail. notes he's going to quit too - discussed that EtOH withdrawal carries high mortality if it occurs and therefore if he were to show any sx would want PCP / ER / hospital treatment. replace vitamins muscle wasting/probable mild protein malnutrition - likley from EtOH calories replacing food. nutrition support. EtOH cessation DVT proph - lovenox otherwise as above Continued [facility] stay due to: ambulation difficulties Discharge planning: rehab hospital Resident Tracking Resident Involvement: Resident Care Provided Care Provided: Adult Hospital Medicine
[2017-10-13 03:24] LABS: HEPATITIS A IGM TC 51813E NON-REACTIVE (NON-REACTIVE); HEPATITIS B CORE IGM TC51854R NON-REACTIVE (NON-REACTIVE)
[2017-10-13 05:54] LABS: BASO % 0.3 %; BASO ABS # 0.01 K/uL (0-0.2); EOS % 1.8 %; EOS ABS # 0.06 K/uL (0-0.5); HEMATOCRIT 31.3 % (37-47); HEMOGLOBIN 10.8 g/dL (12.0-16.0); IG# 0.01 K/uL (0.00-0.02); LYMPH % 28.2 %; LYMPH ABS # 0.93 K/uL (1.2-3.4); MEAN CORPUSCULAR HEMOGLOBIN 34.8 pg (25-34); MEAN CORPUSCULAR HGB CONC 34.5 g/dl (32-36); MEAN PLATELET VOLUME 9.4 fL (7.4-10.4); MONO % 17.3 %; MONO ABS # 0.57 K/uL (0.11-0.59); NEUT % 52.1 %; NEUT ABS # 1.72 K/uL (1.4-6.5); PLATELET COUNT 119 K/uL (130-400); RED CELL DISTRIBUTION WIDTH CV 12.8 % (11.5-14.5); RED CELL DISTRIBUTION WIDTH SD 47.1 fL (36.4-46.3)
[2017-10-13 06:26] LABS: CALCIUM 9.1 mg/dl (8.5-10.1); CREATININE 0.52 mg/dl (0.60-1.20); POTASSIUM 3.7 mmol/L (3.5-5.1)
[2017-10-13 07:08] VITALS: BP 145/77; PULSE 66; TEMP 36.6; O2SAT 99
[2017-10-13] MEDS: RANITIDINE HCL 150 MG TAB PO SCH ×2 (07:35→20:15)
[2017-10-13] MEDS: FENOFIBRATE 145 MG TAB PO SCH (07:35)
[2017-10-13] MEDS: THIAMINE HCL 100 MG TAB PO SCH ×2 (07:36→20:15)
[2017-10-13] MEDS: PRIMIDONE 50 MG TAB PO SCH ×2 (07:37→20:13)
[2017-10-13] MEDS: MULTIVITAMIN TAB PO SCH (07:37)
[2017-10-13] MEDS: ENOXAPARIN 40 MG/0.4 ML SYR SC SCH (07:38)
[2017-10-13] MEDS: LISINOPRIL 20 MG TAB PO SCH (07:38)
[2017-10-13 08:00] VITALS: O2SAT 99
[2017-10-13 15:40] VITALS: BP 146/77; PULSE 71; TEMP 36.8; O2SAT 100
--- NOTE | 2017-10-13 15:59 | Family Medicine Progress Note ---
Progress Note Date of Service Oct 13, 2017. Subjective Pt evaluation today including: conversation w/ patient, conversation w/ family , chart review, lab review, review of studies reports that tremor is much better She is still unsteady but is better no anxiety, palpitations Constitutional: No fever, No chills Eyes: No worsening of vision, No diplopia ENT: No hearing loss Respiratory: No cough, No sputum, No shortness of breath, No dyspnea on exertion Cardiovascular: No chest pain Abdomen: No pain, No nausea, No vomiting, No diarrhea, No constipation Musculoskeletal: No joint pain, No muscle pain Female : No dysuria, No urinary frequency Neurologic: + weakness, + problem reported (+resting tremor) Medications Medications (Trade) Dose Ordered Sig/Emile Route Start Time Stop Time Status Last Admin Dose Admin Gabapentin (Neurontin Tab) 600 mg Q24H PO 10/13/17 16:00 10/13/17 16:01 10/13/17 15:38 600 MG Objective Vital Signs Date Time Temp Pulse Resp B/P (MAP) Pulse Ox O2 Delivery O2 Flow Rate FiO2 10/13/17 15:40 36.8 71 22 146/77 (100) 100 Room Air 10/13/17 08:00 99 Room Air 10/13/17 07:08 36.6 66 18 145/77 (99) 99 Room Air 10/13/17 00:00 Room Air 10/12/17 23:24 36.6 78 20 160/80 (106) 97 Room Air 10/12/17 16:00 Room Air Physical Exam General Appearance: no apparent distress, + pertinent finding (+'ve resting tremor) Eyes: PERRL, EOMI ENT: hearing grossly normal Neck: no adenopathy Respiratory/Chest: lungs clear, normal breath sounds, no respiratory distress, no accessory muscle use Cardiovascular: regular rate, rhythm, no edema, no murmur Abdomen: normal bowel sounds, non tender, soft Extremities: non-tender Neurologic/Psychiatric: alert, normal mood/affect, oriented x 3, + pertinent finding (shuffling gait (improved)) Assessment and Plan 67 yo F with history of Benign Essential Tremor , chronic alcohol abuse presenting with worsening tremor and ambulatory difficulty. Somewhat improved today and no signs of withdrawal. Resting Tremor (chronic), Ambulatory dysfunction - likely exacerbated by chronic alcohol abuse, - no withdrawal symptoms - c/w Alcohol withdrawal protocol - score of 3 - Thiamine, Folate supplementation - Vitamin D level Malnutrition - likely secondary to alcohol consumption - Nutrition support - Needs Dexa Scan Hypertension -BP controlled -Continue lisinopril 20 mg daily. Hypertriglyceridemia -Continue fenofibrate 145 mg daily. Fatty liver/early cirrhosis -Noted on CT. -counseled for alcohol L1 compression deformity/L3 endplate deformity - tylenol DVT PPX: - Lovenox Dispo: Pending [facility] approval Resident Physician Supervision Note: I interviewed and examined the patient. Discussed with Dr. Anderson and agree with findings and plan as documented in the note. Any exceptions or clarifications are listed here: None Documented By: Dav Jimenez feeling better no withdrawal even less tremulous vitals noted nad breathing unlabored no pallor or icterus ambulatory dysfunction/deconditioning - appearing to have muscle tightness/ weakness in back/pelvis, may also have a degree of DJD contributing - but overall picture is that of a woman who is high risk for falls and would benefit greatly from rehab at this time. alcohol abuse absolutely appears contributing both due to the gait disturbance directly (husbands notes several times her gait is worse later in the day - at the same time she would be intoxicated) and due to alcohol induced malnutrition; possibly elements of EtOH induced neuropathy - will need to follow clinically to discern that; appearing stable for rehab waiting on bed tremor - essential tremor. almost certainly made worse by EtOH abuse, better today EtOH abuse - replace vitamins. attempting sobriety. no significatn withdrawal right now muscle wasting/probable mild protein malnutrition - likely from EtOH calories replacing food. nutrition support. EtOH cessation DVT proph - lovenox
[2017-10-13 16:00] VITALS: O2SAT 99
[2017-10-13] MEDS ORDERED: GABAPENTIN 600MG X1 DOSE PO SCH (16:00)
[2017-10-14] VITALS: BP 145/81; PULSE 73; TEMP 36.8; O2SAT 100
[2017-10-14 07:18] VITALS: BP 145/79; PULSE 67; TEMP 36.6; O2SAT 99
[2017-10-14] MEDS: MULTIVITAMIN TAB PO SCH (08:19)
[2017-10-14] MEDS: PRIMIDONE 50 MG TAB PO SCH (08:19)
[2017-10-14] MEDS: THIAMINE HCL 100 MG TAB PO SCH (08:19)
[2017-10-14] MEDS: RANITIDINE HCL 150 MG TAB PO SCH (08:19)
[2017-10-14] MEDS: LISINOPRIL 20 MG TAB PO SCH (08:19)
[2017-10-14] MEDS: FENOFIBRATE 145 MG TAB PO SCH (08:20)
[2017-10-14] MEDS: ENOXAPARIN 40 MG/0.4 ML SYR SC SCH (08:20)
[2017-10-14 08:30] VITALS: O2SAT 99
[2017-10-14] MEDS ORDERED: FLV1 PO (10:08)
[2017-10-14] MEDS ORDERED: CHOL1000 PO (10:08)
[2017-10-14 10:12] VITALS: BP 145/79; PULSE 67; TEMP 36.6; O2SAT 99
--- NOTE | 2017-10-14 10:16 | Discharge Summary ---
Discharge Summary Date of Service Oct 14, 2017. Discharge Summary Admission Date: Oct 11, 2017 at 23:27 Discharge Date: Oct 14, 2017 Discharge Disposition: Rehab Principal Diagnosis: Alcohol withdrawal, ambulatory dysfunction Problems/Secondary Diagnoses: benign essential tremor Immunizations: Have You Had Influenza Vaccine: Unknown History of Tetanus Vaccine?: Unknown History of Pneumococcal: Unknown History of Hepatitis B Vaccine: Unknown Medication Reconciliation New Medications: Cholecalciferol (Vitamin D3) 1,000 Unit Tab 1 TAB PO DAILY for 30 Days, #30 TAB 3 Refills Folic Acid (Folic Acid) 1 Mg Tab 1 MG PO QAM for 30 Days, TAB Continued Medications: Fenofibrate (Tricor) 145 Mg Tab 145 MG PO DAILY, TAB Lisinopril (Zestril) 20 Mg Tab 20 MG PO QAM, TAB [place]-3 Fatty Acids (Fish Oil) 1 Cap Cap 1 CAP PO DAILY Primidone (Mysoline) 50 Mg Tab 25 MG PO BID, TAB Ranitidine (Zantac) 150 Mg Tab 150 MG PO DAILY PRN for prn, TAB Thiamine HCl (Vitamin B-1) 100 Mg Tab 200 MG PO BID for 30 Days, #120 TAB Discharge Exam Review of Systems: Constitutional: No fever, No chills Eyes: No worsening of vision ENT: No hearing loss Respiratory: No cough, No sputum Cardiovascular: No chest pain, No orthopnea Abdomen: No pain, No nausea, No vomiting Musculoskeletal: No joint pain Genitourinary - Female: No dysuria, No urinary frequency Neurologic: + problem reported (tremors /chronic), No memory loss, No paralysis, No weakness Psychiatric: No depression symptoms Endocrine: No fatigue Physical Exam: General Appearance: WD/WN, no apparent distress ENT: hearing grossly normal Neck: supple Respiratory/Chest: chest non-tender, lungs clear, normal breath sounds Cardiovascular: regular rate, rhythm Abdomen / GI: normal bowel sounds, non tender, soft Extremities: no calf tenderness Neurologic/Psychiatric: alert, normal mood/affect, oriented x 3 Skin: normal color Hospital Course 67-year-old female with a past medical history of benign essential tremor, hyper triglyceridemia, hypertension, chronic alcohol use presented to the ER with worsening tremors and ambulatory dysfunction likely alcohol withdrawal/ abuse. She was admitted and monitored with [facility] protocol for alcohol withdrawal. She was recommended inpatient rehabilitation for ambulatory dysfunction which is likely secondary to a combination of alcohol use and malnutrition. She was started on thiamine, folic acid and multivitamin for chronic alcohol abuse and was also found to have a low vitamin D level. Vitamin D level was 14.2. She was recommended to use vitamin D2 50,000 international units for 3 weeks along with 2000 international units vitamin D3 daily. She is also recommended to obtain a DEXA scan as an outpatient. She was discharged in stable condition and recommended to seek additional resources for alcohol abuse. She is to continue rest of her home medications as before Resident Physician Supervision Note: I interviewed and examined the patient. Discussed with Dr. Garcia and agree with findings and plan as documented in the note. Any exceptions or clarifications are listed here: None Documented By: Dav Jimenez feeling better set for rehab vitals noted nad breathing unlabored no pallor or icterus ambulatory dysfunction/deconditioning - appearing to have muscle tightness/ weakness in back/pelvis, may also have a degree of DJD contributing - but overall picture is that of a woman who is high risk for falls and would benefit greatly from rehab at this time. alcohol abuse absolutely appears contributing both due to the gait disturbance directly (husbands notes several times her gait is worse later in the day - at the same time she would be intoxicated) and due to alcohol induced malnutrition; possibly elements of EtOH induced neuropathy - will need to follow clinically to discern that; appearing stable for rehab tremor - essential tremor. almost certainly made worse by EtOH abuse, better today EtOH abuse - replace vitamins. attempting sobriety. no significant withdrawal right now muscle wasting/probable mild protein malnutrition - likely from EtOH calories replacing food. nutrition support. EtOH cessation DVT proph - lovenox utilized while here D deficiency - supplement, f/u ~12wks stable for rehab Total Time Spent: Less than 30 minutes This includes examination of the patient, discharge planning, medication reconciliation, and communication with other providers. Discharge Instructions Please refer to the electronic Patient Visit Report (Discharge Instructions) for additional information. Follow-Up Follow-up with PCP in about a week Additional Copies To Cassidy Pulliam; Stephanie Chandra MD Resident Tracking Resident Involvement: Resident Care Provided Care Provided: Adult [facility] Medicine
--- NOTE | 2017-10-14 10:16 | Discharge Instructions ---
Discharge Instructions Date of Service Oct 14, 2017. Admission Reason for Admission: Alcohol Withdrawal, Tremor Of Both Hands Discharge Discharge Diagnosis / Problem: Alcohol abuse, ambulatory dysfunction Discharge Goals Goal(s): Decrease discomfort, Improve function Activity Recommendations Activity Limitations: per Instructions/Follow-up section . Instructions / Follow-Up Instructions / Follow-Up 67-year-old female with a history of benign essential tremor, chronic alcohol abuse have presented with worsening tremors and ambulatory dysfunction. She was monitored for withdrawal and recommended inpatient rehab for ambulatory dysfunction Resting tremor: Chronic -Continue primidone Chronic alcohol abuse: No current withdrawal symptoms -Continue supplementation with thiamine, folic acid -Alcohol cessation counseling Ambulatory dysfunction; -Vitamin D level at 14.2, supplement with 2000 international units vitamin D3 daily and 50,000 IU vitamin D2 weekly for 3 weeks -Consider DEXA scan upon discharge Malnutrition - likely secondary to alcohol consumption - Nutrition support Hypertension -Continue lisinopril 20 mg daily. Hypertriglyceridemia -Continue fenofibrate 145 mg daily. Fatty liver/early cirrhosis -Noted on CT. -counseled for alcohol cessation Follow-up with PCP in about a week Current Hospital Diet Patient's current hospital diet: Regular Diet Discharge Diet Recommended Diet: Regular Diet Pending Studies Studies pending at discharge: no Laboratory Results Lipid Panel Test 07/24/17 08:41 Range/Units Triglycerides Level 63 0-150 mg/dl Cholesterol Level 266 H 0-200 mg/dl HDL Cholesterol 93 mg/dl Cholesterol/HDL Ratio 2.9 LDL Cholesterol, Calculated 160 mg/dl Medical Emergencies . Who to Call and When: Medical Emergencies: If at any time you feel your situation is an emergency, please call 911 immediately. . Non-Emergent Contact Non-Emergency issues call your: Primary Care Provider . . "Provider Documentation" section prepared by Sarah Garcia. . Resident Tracking Resident Involvement: Resident Care Provided Care Provided: Adult Hospital Medicine
[2017-10-14] MEDS ORDERED: GABAPENTIN 400MG X1 DOSE PO SCH (16:00)
[2017-10-15] MEDS ORDERED: GABAPENTIN 100MG X1 DOSE PO SCH (16:00)
== END 2017-10-14 11:30 | DRG 897 ==
LOC: EDBD 19:58 → C.EDB 19:59 → C.2T 23:27 → ENRESERV 10-12 03:00 → C.4E 10-12 13:09
PROVIDERS: ADMIT Hospitalist; ATTEND Family Medicine
DX: F10.239 Alcohol dependence with withdrawal, unspecified (principal); E44.1 Mild protein-calorie malnutrition; G25.0 Essential tremor; I10 Essential (primary) hypertension; E78.1 Pure hyperglyceridemia; E55.9 Vitamin D deficiency, unspecified; Z87.891 Personal history of nicotine dependence; Z79.899 Other long term (current) drug therapy; Z91.81 History of falling; Z68.21 Body mass index [BMI] 21.0-21.9, adult

== ENCOUNTER → 2017-11-14 | Outpatient (CLI) | payer OTHER ==
[~2017-11-14] MED LIST changes: +CHOL1000 PO; -COLE1TAB5 PO; -CYAN10005 PO; +FLV1 PO
--- NOTE | 2017-11-14 15:09 | DIAGNOSTIC IMAGING REPORT ---
LEFT FOOT 3 VIEWS HISTORY: Left foot swelling. COMPARISON: Left foot 07/31/2015. FINDINGS: No acute fracture or dislocation. Mild osteoarthritis within the DIP, PIP, and first MTP joints. There is a soft tissue and bony bunion at the head of the first metatarsal. Small posterior calcaneal spur. Mild diffuse soft tissue swelling within the foot. The bones are osteopenic. IMPRESSION: 1. No acute fracture or dislocation within the left foot. 2. Mild diffuse soft tissue swelling. 3. Osteopenia. Electronically signed by: Leopoldo Patton M.D. 11/14/2017 3:08 PM Dictated Date/Time: 11/14/2017 3:06 PM
== END | disposition home or self-care (01) ==
LOC: C.RAD1850 14:45
PROVIDERS: ATTEND Neuromusculoskeletal Medicine & OMM
DX: M79.89 Other specified soft tissue disorders (principal); M85.872 Other specified disorders of bone density and structure, left ankle and foot